=== PATIENT | female | born 1955 | race American Indian/Alaskan Native ===

== ENCOUNTER 2016-11-30 06:47 | Day surgery (SDC) | payer BC ==
[~2016-11-30 06:47] MED LIST: Dextrose 5%-0.45% NaCl 1,000 ML IV SCH; Midazolam 1 MG/ML 2 ML SDV ONE; Sodium Chloride 0.9% 10 ML Syringe FLUSH PRN; fentaNYL 100 MCG/2 ML SDV ONE
[2016-11-30] MEDS ORDERED: Midazolam 1 MG/ML 2 ML SDV IV ONE ×3 (07:51→15:54)
[2016-11-30] MEDS ORDERED: fentaNYL 100 MCG/2 ML SDV IV ONE ×3 (07:51→15:54)
[2016-11-30 10:01] VITALS: BP 118/52
--- NOTE | 2016-11-30 13:23 | OR ---
DATE: 11/30/2016 PROCEDURE: Esophagogastroduodenoscopy and multiple pinch biopsies. INSTRUMENT USED: GIF-Q180 Olympus video panendoscope. PREMEDICATIONS: No oral topical anesthesia used. Fentanyl 100 mcg intravenous, Versed 2 mg intravenous. Nasal O2 cannula. The procedure was done under pulse oximetry, BP recording, and quality assurance monitor. INDICATION: The patient with long-standing heartburn, unexplained and not responsive to medical measures, on PPI. Esophagogastroduodenoscopy is performed for detection of any active erosive lesions, Bryant esophagus and/or malignancy also under consideration, H. pylori status to be determined, endoscopic hemostasis therapy if needed. DESCRIPTION OF PROCEDURE: The scope was passed with ease. Adequate visualization of the esophagus was made from proximal to distal areas. No upper esophageal lesions identified. No distal esophageal stricture. No uphill or downhill esophageal varices. No April-Atkins tear. Grade A erosive changes were noted by [place] criteria. [place]cher columnar epithelium was noted at around 34 cm distal to the oral verge, 4 quadrant biopsies were taken and sent for any histopathologic evidence of intestinal metaplasia. No proximal gastric varices noted. Gastric fundus examination by retroflexion showed no polypoid lesions. No gastric ulcer, malignant mass, or vascular ectasia identified. Duodenal bulb showed no ulcer. Visualized second part of the duodenum was unremarkable. Multiple pinch biopsies were taken from the gastric antrum and proximal body, and sent for PyloriTek test for H. pylori and histopathology. No bleeding was noted from any of the visualized areas at the completion of examination. IMPRESSION: Grade A gastroesophageal reflux disease. The patient tolerated the procedure well. [facility] /[id number]
== END 2016-11-30 10:00 | disposition home or self-care (01) ==
LOC: DL.ENDO 06:47
PROVIDERS: ATTEND Internal Medicine Gastroenterology
DX: K29.50 Unspecified chronic gastritis without bleeding (principal); K22.70 Barrett's esophagus without dysplasia; I10 Essential (primary) hypertension; F17.210 Nicotine dependence, cigarettes, uncomplicated; E66.09 Other obesity due to excess calories; F41.1 Generalized anxiety disorder; Z90.49 Acquired absence of other specified parts of digestive tract; Z98.51 Tubal ligation status; Z98.890 Other specified postprocedural states; Z79.899 Other long term (current) drug therapy; Z88.0 Allergy status to penicillin; Z88.1 Allergy status to other antibiotic agents
CPT/HCPCS: 43239; 87077; J2250; J3010; J7042

== ENCOUNTER 2020-02-14 06:08 | Day surgery (SDC) | payer BC ==
[~2020-02-14 06:08] MED LIST changes: -Midazolam 1 MG/ML 2 ML SDV ONE; -fentaNYL 100 MCG/2 ML SDV ONE
[2020-02-14] MEDS ORDERED: Midazolam 1 MG/ML 2 ML SDV IV ONE ×3 (06:09→07:22)
[2020-02-14] MEDS ORDERED: fentaNYL 100 MCG/2 ML SDV IV ONE ×3 (06:09→07:19)
[2020-02-14] MEDS ORDERED: Midazolam 1 MG/ML 2 ML SDV ONE (06:14)
[2020-02-14] MEDS ORDERED: fentaNYL 100 MCG/2 ML SDV ONE (06:15)
--- NOTE | 2020-02-14 08:09 | OR ---
DATE: 02/14/2020 PROCEDURES: Esophagogastroduodenoscopy and multiple pinch biopsies. INSTRUMENT USED: GIF-HQ190 Olympus video panendoscope. PREMEDICATIONS: Fentanyl 100 mcg intravenous, Versed 2 mg intravenous. Nasal O2 cannula. The procedure was done under pulse oximetry, BP recording, and cable installer repairer helper. INDICATION: The patient with known Bryant's esophagus, recent dyspepsia as well as abdominal pain. Esophagogastroduodenoscopy is performed for detection of any active erosive lesions, Bryant biopsies to be taken for any evidence of dysplasia, endoscopic hemostasis therapy if needed. The scope was passed with ease. Adequate visualization of the esophagus was made from proximal to distal areas. No upper esophageal lesions identified. No distal esophageal stricture. No uphill or downhill esophageal varices. No April-Atkins tear. No evidence of erosive esophagitis by [place] criteria. [place] columnar epithelium was noted at around 35 cm distal to the oral verge, NBI views were obtained. No proximal gastric varices noted. Gastric fundus examination by retroflexion showed no polypoid lesions. Sliding hiatal hernia. No gastric ulcer, malignant mass, or vascular ectasia identified. Duodenal bulb showed no ulcer. Visualized 2nd part of the duodenum was unremarkable. 4-quadrant biopsies were taken at 2 cm distance apart from the pink columnar epithelium and sent for any histopathologic evidence of dysplasia. No bleeding was noted from any of the visualized areas at the completion of examination. IMPRESSION: 1. Sliding hiatal hernia. 2. Bryant esophagus. The patient tolerated the procedure well. [facility] /[id number]
[2020-02-14 09:24] VITALS: BP 75/51; PULSE 75
== END 2020-02-14 09:25 | disposition home or self-care (01) ==
LOC: DL.ENDO 06:08
PROVIDERS: ATTEND Internal Medicine Gastroenterology
DX: K22.70 Barrett's esophagus without dysplasia (principal); K44.9 Diaphragmatic hernia without obstruction or gangrene; K29.50 Unspecified chronic gastritis without bleeding; K21.0 Gastro-esophageal reflux disease with esophagitis; E66.09 Other obesity due to excess calories; F41.1 Generalized anxiety disorder; F17.200 Nicotine dependence, unspecified, uncomplicated; F10.20 Alcohol dependence, uncomplicated; Z68.33 Body mass index [BMI] 33.0-33.9, adult
CPT/HCPCS: J2250; J3010; J7042

== ENCOUNTER 2020-02-27 05:30 | Day surgery (SDC) | payer BC ==
[2020-02-27] MEDS ORDERED: fentaNYL 100 MCG/2 ML SDV IV ONE ×4 (05:31→07:21)
[2020-02-27] MEDS ORDERED: Midazolam 1 MG/ML 2 ML SDV IV ONE ×7 (05:31→07:20)
[2020-02-27] MEDS ORDERED: Midazolam 1 MG/ML 2 ML SDV ONE (06:12)
[2020-02-27] MEDS ORDERED: fentaNYL 100 MCG/2 ML SDV ONE (06:12)
[2020-02-27] MEDS ORDERED: Sodium Chloride 0.9% 1,000 ML IV SCH (07:00)
[2020-02-27] MEDS ORDERED: Dextrose 5%-0.45% NaCl 1,000 ML IV SCH (07:30)
--- NOTE | 2020-02-27 08:24 | OR ---
DATE: 02/27/2020 PROCEDURE: Total colonoscopy. INSTRUMENT USED: [id number]-H190DL Olympus video colonoscope. PREMEDICATIONS: Fentanyl 150 mcg intravenous, Versed 4 mg intravenous. Nasal O2 cannula. The procedure was done under pulse oximetry, BP recording, and front desk monitor. INDICATION: The patient with recent lower abdominal pain, treated for subacute colonic diverticulitis. Colonoscopic examination is done for detection of any polypoid lesions and removal, endoscopic hemostasis therapy if needed. DESCRIPTION OF PROCEDURE: Initial rectal exam was unremarkable. Rigid anoscopy showed small internal hemorrhoids without bleeding from them. The colonoscope was passed with ease. Numerous scattered diverticula were noted in the colon, more so in distal left colon along with significant deformity. Scope was passed with ease up to the ileocecal area. Photographs were taken of the normal- appearing cecum identified by landmarks of appendiceal orifice and double-bulged ileocecal folds. No bleeding was noted from any of the visualized areas at the commencement of the examination. The bowel preparation was found to be adequate. [place] scale 3 in all the regions, total score 9. No stricture. No vascular ectasia. No large isolated ulcerations seen. No evidence of diffuse inflammatory bowel disease in the form of friability, contact bleeding, or ulcerations. No polyp or tumor mass identified. Probing the proximal sides of folds and flexures using adequate distention and clearing of the stool material, withdrawal of the scope was made. Cecum to rectum time over 6 minutes. No bleeding was noted from any of the visualized areas at the completion of examination. IMPRESSION: 1. Internal hemorrhoids. 2. Diverticulosis. The patient tolerated the procedure well. [facility] /[id number]
[2020-02-27 10:49] VITALS: BP 92/58; PULSE 82
[2020-02-28] MEDS ORDERED: Sodium Chloride 0.9% 10 ML Syringe FLUSH PRN (05:30)
[2020-02-28] MEDS ORDERED: Dextrose 5%-0.45% NaCl 1,000 ML IV SCH (05:30)
== END 2020-02-27 09:40 | disposition home or self-care (01) ==
LOC: DL.ENDO 05:30
PROVIDERS: ATTEND Internal Medicine Gastroenterology
DX: K57.30 Diverticulosis of large intestine without perforation or abscess without bleeding (principal); K64.8 Other hemorrhoids; K44.9 Diaphragmatic hernia without obstruction or gangrene; K21.9 Gastro-esophageal reflux disease without esophagitis; F41.1 Generalized anxiety disorder; E66.09 Other obesity due to excess calories; Z68.33 Body mass index [BMI] 33.0-33.9, adult
CPT/HCPCS: 45378; J2250; J3010; J7030; J7042